=== PATIENT | male | born 1975 | race Caucasian/White ===

== ENCOUNTER 2019-02-15 17:14 | Emergency (ER) | payer OTHER ==
[2019-02-15] MEDS ORDERED: Pepcid 20 MG VIAL IV ONE ×2 (17:40→17:44)
[2019-02-15] MEDS ORDERED: Zofran 4 MG/2 ML VIAL IV ONE (17:40)
[2019-02-15] MEDS ORDERED: Sodium Chloride 0.9% 1000 ML 1,000 ML IV STA (17:40)
[2019-02-15] MEDS ORDERED: SUBLIMAZE 100 MCG/2 ML IV ONE (17:42)
[2019-02-15] MEDS ORDERED: Zofran 4 MG/2 ML VIAL ONE (17:44)
[2019-02-15] MEDS ORDERED: SUBLIMAZE 100 MCG/2 ML ONE (17:44)
--- NOTE | 2019-02-15 17:46 | ERPHSYRPT ---
- History of Present Illness Time Seen by Provider: 02/15/19 17:35 Historian: patient Exam Limitations: no limitations Patient Subjective Stated Complaint: pt here for right sided abd pain for 2 weeks progressivly getting worse, nausea, no vomiting, pain with deep breath, cough, no fever Triage Nursing Assessment: pt alert, walks in, resp easy, guarding stomach to right, tender to palpate, Physician History: C/o RUQ abdominal pain, radiating to his upper back x 2 weeks off and on, nausea , denies vomiting, but had diarrhea, no bloody or black stool, no fever chills, chest pain, SOB, no urinary complaints. Timing/Duration: week(s) (2) Activities at Onset: none Quality: cramping, sharpness Abdominal Pain Onset Location: RUQ Pain Radiation: back Severity of Pain-Max: severe Severity of Pain-Current: severe Modifying Factors: Improves With: nothing Associated Symptoms: diarrhea, loss of appetite, nausea Previous symptoms: no prior history Allergies/Adverse Reactions: ibuprofen [From Motrin] Allergy (Verified 02/15/19 17:26) Home Medications: Ranitidine HCl [Zantac] 150 mg DAILY 02/15/19 [History] Hx Tetanus, Diphtheria Vaccination/Date Given: Yes Hx Influenza Vaccination/Date Given: No Hx Pneumococcal Vaccination/Date Given: No - Review of Systems Constitutional: No Symptoms Ears, Nose, & Throat: No Symptoms Respiratory: No Symptoms Cardiac: No Symptoms Abdominal/Gastrointestinal: Abdominal Pain, Nausea, Diarrhea Genitourinary Symptoms: No Symptoms Musculoskeletal: No Symptoms Skin: No Symptoms Neurological: No Symptoms All Other Systems: Reviewed and Negative - Past Medical History Pertinent Past Medical History: No Neurological History: No Pertinent History ENT History: No Pertinent History Cardiac History: No Pertinent History Respiratory History: No Pertinent History Endocrine Medical History: No Pertinent History Musculoskeletal History: Other GI Medical History: GERD, Ulcer History: No Pertinent History Psycho-Social History: No Pertinent History Male Reproductive Disorders: No Pertinent History Other Medical History: L5;S1 DETERIATING - Past Surgical History Past Surgical History: Yes Neuro Surgical History: No Pertinent History Cardiac: No Pertinent History Respiratory: No Pertinent History Gastrointestinal: No Pertinent History Genitourinary: No Pertinent History Musculoskeletal: No Pertinent History Male Surgical History: No Pertinent History Other Surgical History: right arm - Social History Smoking Status: Current every day smoker How long have you smoked: 22 Exposure to second hand smoke: Yes Drug Use: none Patient Lives Alone: No - Nursing Vital Signs Nursing Vital Signs: Initial Vital Signs Temperature 98.4 F 02/15/19 17:22 Pulse Rate 76 02/15/19 17:22 Respiratory Rate 18 02/15/19 17:22 Blood Pressure 128/86 02/15/19 17:22 O2 Sat by Pulse Oximetry 99 02/15/19 17:22 Pain Scale Pain Intensity 8 - Physical Exam General Appearance: no apparent distress Eye Exam: eyes nml inspection Ears, Nose, Throat Exam: normal ENT inspection, pharynx normal, moist mucous membranes Neck Exam: normal inspection, non-tender, supple Respiratory Exam: normal breath sounds, lungs clear, airway intact Cardiovascular Exam: regular rate/rhythm, normal heart sounds, normal peripheral pulses, No murmur Gastrointestinal/Abdomen Exam: soft, normal bowel sounds, tenderness (RUQ, mod. severe), No distention, No mass, No guarding, No ecchymosis, No pulsatile mass, No rebound, No hernia, No organomegaly Back Exam: normal inspection, CVA tenderness (right) Extremity Exam: normal inspection Neurologic Exam: alert, oriented x 3, cooperative, normal mood/affect Skin Exam: normal color, warm, dry, No rash, No petechiae Lymphatic Exam: No adenopathy SpO2 Interpretation: normal SpO2: 99 O2 Delivery: Room Air - Course Nursing assessment & vital signs reviewed: Yes EKG Interpreted by Me: RATE (63/min), NORMAL AXIS, NORMAL INTERVALS, NORMAL QRS , NORMAL ST-T - Radiology Exams Chest X-ray Interpretation: Interpreted by me, Negative - CT Exams Abdomen/Pelvis CT Interpretation: Negative, Tele-radiologist Report, Normal Appendix Ordered Tests: Active Orders 24 hr Category Date Time Status EKG-ER Only STAT Care 02/15/19 17:40 Active IV Insertion STAT Care 02/15/19 17:40 Active ABDOMEN AND PELVIS W CONTRAST [CT] Stat Exams 02/15/19 17:40 Taken CHEST 1 VIEW (PORTABLE) Stat Exams 02/15/19 17:41 Taken AMYLASE Stat Lab 02/15/19 17:35 Completed CBC W DIFF Stat Lab 02/15/19 17:35 Completed CMP Stat Lab 02/15/19 17:35 Completed LIPASE Stat Lab 02/15/19 17:35 Completed Lactic Acid Stat Lab 02/15/19 17:45 Completed TROPONIN Q3H Lab 02/15/19 17:35 Completed TROPONIN Q3H Lab 02/15/19 20:45 Ordered TROPONIN Q3H Lab 02/15/19 23:45 Ordered TROPONIN Q3H Lab 02/16/19 02:45 Ordered TROPONIN Q3H Lab 02/16/19 05:45 Ordered UA W/RFX UR CULTURE Stat Lab 02/15/19 19:15 Completed Medication Summary Discontinued Medications Generic Name Dose Route Start Last Admin Trade Name Kelly PRN Reason Stop Dose Admin Famotidine 20 mg 02/15/19 17:40 02/15/19 18:00 Pepcid 20 Mg Vial IV 02/15/19 17:41 20 mg STAT ONE Administration Famotidine Confirm 02/15/19 17:44 Pepcid 20 Mg Vial Administered 02/15/19 17:45 Dose 20 mg IV .STK-MED ONE Fentanyl Citrate 75 mcg 02/15/19 17:42 02/15/19 17:59 Sublimaze 100 Mcg/2 Ml IV 02/15/19 17:43 75 mcg STAT ONE Administration Fentanyl Citrate Confirm 02/15/19 17:44 Sublimaze 100 Mcg/2 Ml Administered 02/15/19 17:45 Dose 100 mcg .ROUTE .STK-MED ONE Sodium Chloride 1,000 mls @ 999 mls/hr 02/15/19 17:40 02/15/19 18:01 Sodium Chloride 0.9% 1000 Ml IV 02/15/19 18:40 999 mls/hr .Q1H1M STA Administration Sodium Chloride Confirm 02/15/19 18:01 Sodium Chloride 0.9% 1000 Ml Administered 02/15/19 18:02 Dose 1,000 mls @ ud .ROUTE .STK-MED ONE Morphine Sulfate 4 mg 02/15/19 19:06 02/15/19 19:19 Morphine Sulfate 4 Mg Inj IV 02/15/19 19:07 4 mg STAT ONE Administration Morphine Sulfate Confirm 02/15/19 19:18 Morphine Sulfate 4 Mg Inj Administered 02/15/19 19:19 Dose 4 mg .ROUTE .STK-MED ONE Ondansetron HCl 4 mg 02/15/19 17:40 02/15/19 17:59 Zofran 4 Mg/2 Ml Vial IV 02/15/19 17:41 4 mg STAT ONE Administration Ondansetron HCl Confirm 02/15/19 17:44 Zofran 4 Mg/2 Ml Vial Administered 02/15/19 17:45 Dose 4 mg .ROUTE .STK-MED ONE Lab/Rad Data: Laboratory Result Diagrams 02/15/19 17:35 02/15/19 17:35 Laboratory Results 02/15/19 02/15/19 02/15/19 Range/Units 19:15 17:45 17:35 WBC (4.0-10.5) K/mm3 RBC (4.1-5.6) M/mm3 Hgb (12.5-18.0) gm/dl Hct (42-50) % MCV (78-100) fl MCH (26-32) pg MCHC (32-36) g/dl RDW (11.5-14.0) % Plt Count (150-450) K/mm3 MPV (6-9.5) fl Gran % (36.0-66.0) % Eos # (Auto) (0-0.5) Absolute Lymphs (auto) (1.0-4.6) Absolute Monos (auto) (0.0-1.3) Lymphocytes % (24.0-44.0) % Monocytes % (0.0-12.0) % Eosinophils % (0.00-5.0) % Basophils % (0.0-0.4) % Absolute Granulocytes (1.4-6.9) Basophils # (0-0.4) Sodium (137-145) mmol/L Potassium (3.5-5.1) mmol/L Chloride (98-107) mmol/L Carbon Dioxide (22-30) mmol/L Anion Gap (5-15) MEQ/L BUN (9-20) mg/dL Creatinine (0.66-1.25) mg/dL Estimated GFR ML/MIN Glucose (74-106) mg/dL Lactic Acid 1.3 (0.4-2.0) Calcium (8.4-10.2) mg/dL Total Bilirubin (0.2-1.3) mg/dL AST (17-59) U/L ALT (0-50) U/L Alkaline Phosphatase (38-126) U/L Troponin I < 0.012 (0.000-0.034) ng/mL Serum Total Protein (6.3-8.2) g/dL Albumin (3.5-5.0) g/dL Amylase (30-110) U/L Lipase (23-300) U/L Urine Color YELLOW (YELLOW) Urine Appearance SLIGHTLY CLOUDY (CLEAR) Urine pH 6.0 (5-6) Ur Specific [place] 1.032 (1.005-1.025) Urine Protein NEGATIVE (Negative) Urine Ketones NEGATIVE (NEGATIVE) Urine Blood NEGATIVE (0-5) Josue/ul Urine Nitrite NEGATIVE (NEGATIVE) Urine Bilirubin NEGATIVE (NEGATIVE) Urine Urobilinogen 2 (0-1) mg/dL Ur Leukocyte Esterase NEGATIVE (NEGATIVE) Urine WBC (Auto) NONE (0-5) /HPF Urine RBC (Auto) 3-5 (0-2) /HPF U Epithel Cells (Auto) NONE (FEW) /HPF Urine Bacteria (Auto) NONE (NEGATIVE) /HPF Urine Culture Reflexed NO (NO) Urine Glucose NEGATIVE (NEGATIVE) mg/dL 02/15/19 02/15/19 Range/Units 17:35 17:35 WBC 11.2 H (4.0-10.5) K/mm3 RBC 5.32 (4.1-5.6) M/mm3 Hgb 14.7 (12.5-18.0) gm/dl Hct 44.8 (42-50) % MCV 84.2 (78-100) fl MCH 27.6 (26-32) pg MCHC 32.8 (32-36) g/dl RDW 16.4 H (11.5-14.0) % Plt Count 286 (150-450) K/mm3 MPV 9.6 H (6-9.5) fl Gran % 58.8 (36.0-66.0) % Eos # (Auto) 0.45 (0-0.5) Absolute Lymphs (auto) 3.33 (1.0-4.6) Absolute Monos (auto) 0.79 (0.0-1.3) Lymphocytes % 29.8 (24.0-44.0) % Monocytes % 7.1 (0.0-12.0) % Eosinophils % 4.0 (0.00-5.0) % Basophils % 0.3 (0.0-0.4) % Absolute Granulocytes 6.56 (1.4-6.9) Basophils # 0.03 (0-0.4) Sodium 142 (137-145) mmol/L Potassium 4.2 (3.5-5.1) mmol/L Chloride 109 H (98-107) mmol/L Carbon Dioxide 24 (22-30) mmol/L Anion Gap 13.5 (5-15) MEQ/L BUN 19 (9-20) mg/dL Creatinine 0.92 (0.66-1.25) mg/dL Estimated GFR > 60.0 ML/MIN Glucose 99 (74-106) mg/dL Lactic Acid (0.4-2.0) Calcium 9.4 (8.4-10.2) mg/dL Total Bilirubin 0.60 (0.2-1.3) mg/dL AST 29 (17-59) U/L ALT 19 (0-50) U/L Alkaline Phosphatase 48 (38-126) U/L Troponin I (0.000-0.034) ng/mL Serum Total Protein 7.9 (6.3-8.2) g/dL Albumin 4.4 (3.5-5.0) g/dL Amylase 67 (30-110) U/L Lipase 138 (23-300) U/L Urine Color (YELLOW) Urine Appearance (CLEAR) Urine pH (5-6) Ur Specific [place] (1.005-1.025) Urine Protein (Negative) Urine Ketones (NEGATIVE) Urine Blood (0-5) Josue/ul Urine Nitrite (NEGATIVE) Urine Bilirubin (NEGATIVE) Urine Urobilinogen (0-1) mg/dL Ur Leukocyte Esterase (NEGATIVE) Urine WBC (Auto) (0-5) /HPF Urine RBC (Auto) (0-2) /HPF U Epithel Cells (Auto) (FEW) /HPF Urine Bacteria (Auto) (NEGATIVE) /HPF Urine Culture Reflexed (NO) Urine Glucose (NEGATIVE) mg/dL - Progress Progress: improved Progress Note: 02/15/19 20:09 Improved after Fentanyl and Morphine iv, saline bolus given, no fever, nausea resolved, stable. We reviewed his test results, discussed his prognosis, discharged recommending to rest x 2-3 days, drink plenty of fluids, and diet, follow up with his physician next week. Counseled pt/family regarding: lab results, diagnosis, need for follow-up, rad results - Departure Departure Disposition: Home Clinical Impression: Abdominal pain Qualifiers: Abdominal location: right upper quadrant Qualified Code(s): R10.11 - Right upper quadrant pain Condition: Stable Critical Care Time: No Referrals: DOCTOR,NO FAMILY [Primary Care Provider] - Instructions: Acute Abdomen (Belly Pain), Adult (DC), Peptic Ulcers (DC) Additional Instructions: Rest x 2-3 days, drink plenty of fluids, and diet, follow up with your physician next week, return if severe pain, vomiting, fever> 102 F! Prescriptions: Clidinium/Chlordiazepoxide [Librax] 1 cap PO TID PRN #15 capsule PRN Reason: Pain PANTOPRAZOLE 40 mg Tablet [Protonix 40MG Tablet] 40 mg PO QAM #30 tab
[2019-02-15] MEDS ORDERED: Sodium Chloride 0.9% 1000 ML 1,000 ML ONE (18:01)
[2019-02-15 18:08] LABS: BASOPHIL % 0.3 % (0.0-0.4); Basophil (Absolute #) 0.03 (0-0.4); Eosinophil (Absolute #) 0.45 (0-0.5); Granulocyte Absolute (ANC) 6.56 (1.4-6.9); Granulocytes % 58.8 % (36.0-66.0); Hematocrit 44.8 % (42-50); Hemoglobin 14.7 gm/dl (12.5-18.0); Lymphocyte (Absolute #) 3.33 (1.0-4.6); Lymphocytes % 29.8 % (24.0-44.0); Mean Cell Volume 84.2 fl (78-100); Mean Corpuscular Hemoglobin 27.6 pg (26-32); Mean Corpuscular Hgb Concent. 32.8 g/dl (32-36); Mean Platelet Volume 9.6 fl (6-9.5); Monocyte (Absolute #) 0.79 (0.0-1.3); Monocytes % 7.1 % (0.0-12.0); Platelet Count 286 K/mm3 (150-450); Red Blood Count 5.32 M/mm3 (4.1-5.6); Red Cell Distribution Width 16.4 % (11.5-14.0); White Blood Count 11.2 K/mm3 (4.0-10.5)
[2019-02-15 18:22] LABS: ALBUMIN 4.4 g/dL (3.5-5.0); ALKALINE PHOSPHATASE 48 U/L (38-126); AMYLASE 67 U/L (30-110); ANION GAP 13.5 MEQ/L (5-15); BLOOD UREA NITROGEN 19 mg/dL (9-20); CHLORIDE 109 mmol/L (98-107); Calcium 9.4 mg/dL (8.4-10.2); Carbon Dioxide 24 mmol/L (22-30); Creatinine 1 0.92 mg/dL (0.66-1.25); Glucose 99 mg/dL (74-106); LIPASE 138 U/L (23-300); Potassium 4.2 mmol/L (3.5-5.1); SGOT/AST 29 U/L (17-59); SGPT/ALT 19 U/L (0-50); SODIUM 142 mmol/L (137-145); Total Protein 7.9 g/dL (6.3-8.2)
[2019-02-15] MEDS ORDERED: MORPHINE SULFATE 4 MG INJ IV ONE (19:06)
[2019-02-15 19:17] VITALS: BP 115/92
[2019-02-15] MEDS ORDERED: MORPHINE SULFATE 4 MG INJ ONE (19:18)
[2019-02-15 19:53] LABS: Appearance SLIGHTLY CLOUDY (CLEAR); Bilirubin NEGATIVE (NEGATIVE); Blood NEGATIVE Ery/ul (0-5); Glucose NEGATIVE (NEGATIVE); Ketones NEGATIVE (NEGATIVE); Leukocyte Esterase NEGATIVE (NEGATIVE); Nitrite NEGATIVE (NEGATIVE); Protein,Urine Dip NEGATIVE (Negative); Specific Gravity 1.032 (1.005-1.025); Urobilinogen 2 mg/dL (0-1)
[2019-02-15 20:06] VITALS: PULSE 70
[2019-02-15 20:14] VITALS: O2SAT 99
--- NOTE | 2019-02-16 08:51 | XRAY ---
Indication: Abdomen pain 2 weeks. Nausea. Multiple contiguous axial images obtained through the abdomen and pelvis using 80 cc Isovue 370 contrast. Comparison: CT renal stone study January 26, 2011. Lung bases demonstrates mild bibasilar dependent atelectasis/scarring. No infiltrate or effusion. Heart is not enlarged. Noncontrasted stomach and bowel loops appear nonobstructed. Normal appendix. Mild scattered colonic diverticulosis without diverticulitis. No free fluid/air. Gallbladder contracted without gallstones or biliary distention. Remaining liver, gallbladder, pancreas, spleen, adrenal glands, kidneys, ureters, and bladder appear unremarkable. Minimal aortoiliac calcifications. No AAA or pathologic retroperitoneal lymphadenopathy. Osseous structures intact with minimal degenerative changes throughout the spine. No ventral or inguinal hernias. Impression: 1. Mild colonic diverticulosis without diverticulitis. 2. Remaining CT abdomen/pelvis with contrast exam is negative. CT DI 9.70
--- NOTE | 2019-02-16 08:52 | XRAY ---
Indication: Cough. Abdomen pain. Comparison: March 16, 2011. Portable chest again hyperinflated with new minimal scattered fibrosis/scarring bilaterally. No focal infiltrate, consolidation, or large effusion. Heart and mediastinal structures within normal limits. Bony thorax intact. Impression: Nonacute hyperinflated chest with chronic features.
== END 2019-02-15 20:29 | disposition home or self-care (01) ==
LOC: ED 17:14
DX: R10.11 Right upper quadrant pain (principal); R19.7 Diarrhea, unspecified
CPT/HCPCS: 36000; 36415; 71045; 74177; 80053; 81001; 82150; 83605; 83690; 84484; 85025; 93005; 96360; 96374; 96375; 99284; J2270; J2405; J3010